=== PATIENT | male | born 1965 | race Caucasian/White ===

== ENCOUNTER 2016-11-07 18:45 | Emergency (ER) | payer MEDICARE, OTHER ==
[~2016-11-07 18:45] MED LIST: IPRAAER INH
[2016-11-07 18:47] VITALS: BP 156/87; PULSE 95; RESP 20; TEMP 100; O2SAT 97
== END 2016-11-07 19:33 | disposition left against medical advice (07) ==
LOC: NED 18:45
DX: R68.89 Other general symptoms and signs (principal)
CPT/HCPCS: 99281